=== PATIENT | female | born 1980 | race Caucasian/White ===

== ENCOUNTER 2018-04-22 09:35 | Emergency (ER) | payer MEDICAID ==
[~2018-04-22] VITALS: Ht 160 cm; Wt 94.5 kg
[2018-04-22 09:40] VITALS: BP 123/87
--- NOTE | 2018-04-22 11:27 | NUR ---
pt to xray
[2018-04-22] MEDS ORDERED: ACET-2119 PO (11:49)
[2018-04-22] MEDS ORDERED: IBUP-1984 PO (11:49)
--- NOTE | 2018-04-22 12:00 | NUR ---
HOUSE CALLS NURSE PAGED
== END 2018-04-22 12:41 | disposition home or self-care (01) ==
LOC: ER 09:35
DX: M25.572 Pain in left ankle and joints of left foot (principal); M25.561 Pain in right knee; W18.30XA Fall on same level, unspecified, initial encounter; Y93.89 Activity, other specified; Y92.89 Other specified places as the place of occurrence of the external cause; Y99.8 Other external cause status
CPT/HCPCS: 29515; 73610; 99283